=== PATIENT | male | born 1940 | race Caucasian/White ===

== ENCOUNTER → 2019-05-11 10:22 | Day surgery (SDC) | payer MEDICARE, BC ==
[~2019-05-11 10:22] MED LIST: Acetaminophen TAB* 325 MG PO PRN; Benzocaine/Butamben/Tetracain (CETACAINE - SINGLE USE) 5 gm TOPICAL ONE; Buffered Lidocaine 1% SYRIN* 1 ML/SYRINGE INTRADERM ONE; Dexamethasone IV* 4 MG/ML 1 ML (4 MG) IV SLOW PU ONE; Dexamethasone IV* 4 MG/ML 1 ML (4 MG) ONE; DiMENhydriNATE IV* 50 MG/ML VIAL IV PUSH PRN; Lactated Ringers 1000 ML Bag* 1,000 ML IV SCH; Levalbuterol 0.63MG/3ML NEB* UNIT OF USE INH ONE; Levalbuterol 0.63MG/3ML NEB* UNIT OF USE INH PRN; Lidocaine 2% PF * 5 ML VIAL ONE; Midazolam* 1 MG/ML 2 ML VIAL (2 MG) ONE; Naloxone* 0.4 MG/ML 1 ML VIAL IV PRN; Ondansetron INJ* 2 MG/ML VIAL ONE; Propofol* 10 MG/ML 20 ML BTL ONE; Succinylcholine* 20 MG/ML 10 ML VIAL ONE; diPHENhydraMINE IV* 50 MG/ML 1 ml VIAL (BENADRYL) IV PRN; fentaNYL* 50 MCG/ML 2 ML VIAL (100 MCG VIAL) IV PRN; fentaNYL* 50 MCG/ML 2 ML VIAL (100 MCG VIAL) ONE
[2019-05-11 12:19] LABS: BUN/Creatinine Ratio 24.6 (8-20); Calcium 9.7 mg/dL (8.6-10.3); EGFR African American 58.5 (>60); EGFR Non-African American 48.3 (>60); Potassium 4.5 mmol/L (3.5-5.0)
--- NOTE | 2019-05-11 16:17 | BRIEFOPN ---
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
[2019-05-11 17:20] VITALS: BP 143/101
--- NOTE | 2019-05-11 17:29 | PRO ---
BRONCHOSCOPY REPORT: DATE OF PROCEDURE: 05/11/19 [facility] PROCEDURE PERFORMED: Bronchoscopy and EBUS with FNA of R4, station 7, L4, L10 lymph nodes. PREPROCEDURAL DIAGNOSIS: Recently diagnosed squamous cell lung cancer. ANESTHESIA: General anesthesia. ANESTHESIOLOGIST: Dr. Grimes. DESCRIPTION OF PROCEDURE: Informed consent was obtained from the patient prior to the procedure after all the risks and benefits were thoroughly explained. The patient was intubated with size 8.5 endotracheal tube. Appropriate time- out was performed and agreed on by attending staff prior to the procedure. A flexible Olympus bronchoscope was inserted through ET tube for airway inspection. ET tube positioning confirmed to be 3 cm above the level of josy. Bronchoscope was then advanced into right bronchial tree, which was inspected. No endobronchial lesions were noted. Thick secretions were noted and were suctioned out. Bronchoscope was then advanced into the left bronchial tree, which was inspected. No endobronchial lesions noted. Thick secretions noted and were suctioned out. All bronchi appeared to be patent. Bronchoscope was then withdrawn and EBUS bronchoscope was inserted. Station R4 was mildly enlarged and was sampled with two passes. Rapid on-site evaluation revealed lymphatic tissue. Station 7 was then accessed also with two passes. Rapid on- site evaluation revealed lymphatic tissue with no malignant cells. Station L4 was accessed also with three passes. Rapid on-site evaluation revealed lymphatic tissue with no malignant cells. L10 was accessed with two passes. Rapid on-site evaluation revealed lymphatic tissue with no malignant cells. Bronchoscope was then withdrawn and Olympus bronchoscope was reinserted for inspection of any bleeding. Small amount of blood was noted and was suctioned out. The patient tolerated the procedure well. The patient was extubated and seen in Recovery in optimal condition. Specimen was sent to the lab in formalin for further testing. [id number]/[facility] #: [id number] [facility]
== END | disposition home or self-care (01) ==
LOC: OR 10:22
PROVIDERS: ATTEND Internal Medicine
DX: C34.90 Malignant neoplasm of unspecified part of unspecified bronchus or lung (principal); R91.8 Other nonspecific abnormal finding of lung field; K21.9 Gastro-esophageal reflux disease without esophagitis; E11.9 Type 2 diabetes mellitus without complications; Z79.82 Long term (current) use of aspirin; Z79.899 Other long term (current) drug therapy; Z87.891 Personal history of nicotine dependence
CPT/HCPCS: 36415; 80048; 88172; 88173; 88177; 88305; 93005; J0330; J1100; J2250; J2405; J2704; J3010

== ENCOUNTER 2020-04-20 15:15 | Inpatient (IN) ==
[2020-04-20] MEDS ORDERED: NS 0.9% 1000 ml BAG 1,000 ML IV ONE (16:00)
[2020-04-20 16:24] LABS: ABS Basophils 0.1 10^3/ul (0-0.2); ABS Eosinophils 0.2 10^3/ul (0-0.6); ABS Lymphocytes 1.2 10^3/ul (1.0-4.8); ABS Monocytes 0.7 10^3/ul (0-0.8); ABS Neutrophils 4.4 10^3/ul (1.5-7.7); Eosinophil % 2.6 %; Hematocrit 33 % (42-52); Hemoglobin 11.3 g/dL (14.0-18.0); Lymphocyte % 18.2 %; Mean Corpuscular HGB Conc 35 g/dL (31-36); Mean Corpuscular Hemoglobin 34 pg (27-31); Mean Corpuscular Volume 99 fL (80-94); Mean Platelet Volume 8.7 fL (7.4-10.4); Platelet Count 197 10^3/uL (150-450); Red Blood Count 3.29 10^6 /uL (4.18-5.48); Red Cell Distribution Width 14 % (10-15); White Blood Count 6.5 10^3/uL (3.5-10.8)
[2020-04-20 16:33] LABS: Activated Partial Thrombo Time 33.6 seconds (26.0-38.0); INR 0.97 (0.82-1.09)
[2020-04-20 16:45] LABS: Troponin I 0.04 ng/mL (<0.03)
[2020-04-20 17:00] LABS: CO2 Carbon Dioxide 26 mmol/L (22-32); Chloride 104 mmol/L (101-111); Potassium 4.4 mmol/L (3.5-5.0); Sodium 139 mmol/L (135-145)
[2020-04-20 17:01] LABS: ALT 21 U/L (7-52); AST 22 U/L (13-39); Albumin 4.4 g/dL (3.2-5.2); Albumin/Globulin Ratio 2.2 (1-3); Alkaline Phosphatase 59 U/L (34-104); Anion Gap 9 mmol/L (2-11); BUN/Creatinine Ratio 23.3 (8-20); Blood Urea Nitrogen 42 mg/dL (6-24); Calcium 9.7 mg/dL (8.6-10.3); EGFR African American 44.4 (>60); EGFR Non-African American 36.7 (>60); Glucose 159 mg/dL (70-100); Total Protein 6.4 g/dL (6.4-8.9)
[2020-04-20] MEDS ORDERED: Iodixanol (CONTRAST) 320 MG/ML 100 ML SDV IV ONE (17:03)
[2020-04-20] MEDS ORDERED: Dextrose 50% Syringe 50 ml 25 GM/50 ML SYRINGE IV PUSH PRN (19:44)
[2020-04-20 20:12] LABS: Cholesterol 120 mg/dL; HDL Cholesterol 30.4 mg/dL; LDL Cholesterol 24 mg/dL; Triglycerides 329 mg/dL
[2020-04-20 22:29] LABS: Troponin I 0.03 ng/mL (<0.03)
[2020-04-20] MEDS: Insulin GLARGINE 100 un/ml 10 ml VIAL SUBCUT SCH (22:50)
[2020-04-21 01:41] LABS: Troponin I 0.03 ng/mL (<0.03)
[2020-04-21] MEDS: Aspirin EC 81 mg TAB.EC (enteric coated) PO SCH (09:42)
[2020-04-21] MEDS ORDERED: NS 0.9% 1000 ml BAG 1,000 ML IV ONE (13:18)
[2020-04-21] MEDS: Latanoprost 0.005% 2.5 ml BTL BOTH EYES SCH (17:09)
[2020-04-21] MEDS: Insulin GLARGINE 100 un/ml 10 ml VIAL SUBCUT SCH (21:29)
[2020-04-22] MEDS: Aspirin EC 81 mg TAB.EC (enteric coated) PO SCH (09:01)
[2020-04-22] MEDS ORDERED: Perflutren Lipid Microsphere 3 ML VIAL ONE (09:52)
[2020-04-22] MEDS ORDERED: Calcium Polycarbophil 625mg TB PO PRN (16:05)
[2020-04-22] MEDS: Latanoprost 0.005% 2.5 ml BTL BOTH EYES SCH (16:55)
[2020-04-22] MEDS: Insulin GLARGINE 100 un/ml 10 ml VIAL SUBCUT SCH (20:14)
[2020-04-23 06:35] LABS: BUN/Creatinine Ratio 21.7 (8-20); EGFR African American 50.5 (>60); EGFR Non-African American 41.7 (>60); Potassium 4.4 mmol/L (3.5-5.0)
[2020-04-23 08:10] VITALS: BP 123/43
== END 2020-04-23 11:53 | disposition home or self-care (01) | DRG 66 ==
LOC: MEDTELE 15:15 → ED 15:15 → MEDTELE 22:42
PROVIDERS: ADMIT Internal Medicine; ATTEND Internal Medicine

== ENCOUNTER 2021-01-10 14:43 | Inpatient (IN) ==
[2021-01-10] MEDS ORDERED: NS 0.9% 500 ml BAG 500 ML IV ONE (16:04)
[2021-01-10 16:57] LABS: ABS Lymphocytes 0.4 10^3/ul (1.0-4.8); ABS Neutrophils 4.6 10^3/ul (1.5-7.7); Eosinophil % 0.7 %; Hematocrit 27 % (42-52); Hemoglobin 9.3 g/dL (14.0-18.0); Lymphocyte % 7.3 %; Mean Corpuscular HGB Conc 34 g/dL (31-36); Mean Corpuscular Hemoglobin 34 pg (27-31); Mean Corpuscular Volume 99 fL (80-94); Mean Platelet Volume 8.8 fL (7.4-10.4); Platelet Count 154 10^3/uL (150-450); Red Blood Count 2.76 10^6 /uL (4.18-5.48); Red Cell Distribution Width 15 % (10-15); White Blood Count 5.1 10^3/uL (3.5-10.8)
[2021-01-10 17:07] LABS: Activated Partial Thrombo Time 29.6 seconds (26.0-38.0); INR 1.05 (0.86-1.15)
[2021-01-10 17:13] LABS: ALT 26 U/L (7-52); AST 23 U/L (13-39); Albumin 3.7 g/dL (3.2-5.2); Albumin/Globulin Ratio 1.9 (1-3); Alkaline Phosphatase 53 U/L (35-149); Anion Gap 7 mmol/L (2-11); Blood Urea Nitrogen 52 mg/dL (6-24); C Reactive Protein 4.52 mg/L (<8.01); CO2 Carbon Dioxide 27 mmol/L (22-32); Calcium 8.9 mg/dL (8.6-10.3); Chloride 103 mmol/L (101-111); EGFR African American 40.1 (>60); EGFR Non-African American 33.2 (>60); Globulin 1.9 g/dL (2-4); Glucose 143 mg/dL (70-100); Potassium 4.5 mmol/L (3.5-5.0); Sodium 137 mmol/L (135-145); Total Protein 5.6 g/dL (6.4-8.9)
[2021-01-10 17:15] LABS: Troponin I 0.41 ng/mL (<0.03)
[2021-01-10 18:09] LABS: Urine Appearance Cloudy; Urine Bilirubin Negative (Negative); Urine Blood Negative (Negative); Urine Color Yellow; Urine Glucose Negative (Negative); Urine Ketones Negative (Negative); Urine Nitrite Negative (Negative); Urine Protein Negative (Negative); Urine Specific Gravity 1.015 (1.002-1.030); Urine Urobilinogen Negative (Negative)
[2021-01-10 18:31] LABS: Urine Bacteria Absent (Absent); Urine Red Blood Cell Trace(0-2/hpf) (Absent); Urine Squamous Epithelial Cell Present (Absent); Urine White Blood Cell 2+(11-20/hpf) (Absent)
[2021-01-10] MEDS ORDERED: cefTRIAXone 1 gm/50 mL NS BAG 1 GM/50 ML BAG IV ONE (18:34)
[2021-01-10] MEDS ORDERED: Ondansetron 4 mg VIAL 2 MG/ML 2 ml VIAL IV PRN (21:07)
[2021-01-10] MEDS ORDERED: Dextrose 50% Syringe 50 ml 25 GM/50 ML SYRINGE IV PUSH PRN (21:07)
[2021-01-10 21:14] LABS: Troponin I 0.34 ng/mL (<0.03)
[2021-01-10] MEDS ORDERED: NS 0.9% 1000 ml BAG 1,000 ML IV SCH (21:15)
[2021-01-11 01:06] LABS: Troponin I 0.32 ng/mL (<0.03)
[2021-01-11 06:31] LABS: ABS Eosinophils 0.1 10^3/ul (0-0.6); ABS Lymphocytes 0.5 10^3/ul (1.0-4.8); ABS Monocytes 0.1 10^3/ul (0-0.8); ABS Neutrophils 3.6 10^3/ul (1.5-7.7); Eosinophil % 1.8 %; Hematocrit 27 % (42-52); Hemoglobin 9.2 g/dL (14.0-18.0); Lymphocyte % 10.9 %; Mean Corpuscular HGB Conc 34 g/dL (31-36); Mean Corpuscular Hemoglobin 33 pg (27-31); Mean Corpuscular Volume 100 fL (80-94); Mean Platelet Volume 8.8 fL (7.4-10.4); Platelet Count 152 10^3/uL (150-450); Red Blood Count 2.75 10^6 /uL (4.18-5.48); Red Cell Distribution Width 14 % (10-15); White Blood Count 4.2 10^3/uL (3.5-10.8)
[2021-01-11 06:40] LABS: INR 1.05 (0.86-1.15)
[2021-01-11 06:55] LABS: Calcium 8.9 mg/dL (8.6-10.3); EGFR African American 48.3 (>60); EGFR Non-African American 39.9 (>60); HDL Cholesterol 30.1 mg/dL; Potassium 4.1 mmol/L (3.5-5.0)
[2021-01-11] MEDS ORDERED: Sulfamethox/Trimethoprim DS TAB 800/160 mg PO SCH (09:00)
[2021-01-11] MEDS: Insulin ISOPH/REG 70/30 SUBCUT SCH (09:26)
[2021-01-11] MEDS ORDERED: Perflutren Lipid Microsphere 3 ML VIAL ONE (09:49)
[2021-01-11] MEDS ORDERED: Latanoprost 0.005% 2.5 ml BTL BOTH EYES SCH (18:00)
[2021-01-11] MEDS ORDERED: Insulin ISOPH/REG 70/30 SUBCUT SCH (18:00)
[2021-01-11] MEDS ORDERED: Mometasone 220 MCG MDI INH SCH (18:00)
[2021-01-11] MEDS: Vitamin THERAPEUTIC TAB PO SCH (19:09)
[2021-01-11] MEDS ORDERED: CMCS: Simvastatin 10 mg TAB (NF) PO SCH (21:00)
[2021-01-12 06:30] LABS: Hematocrit 26 % (42-52); Hemoglobin 8.6 g/dL (14.0-18.0); Mean Corpuscular HGB Conc 33 g/dL (31-36); Mean Corpuscular Hemoglobin 33 pg (27-31); Mean Corpuscular Volume 100 fL (80-94); Mean Platelet Volume 8.8 fL (7.4-10.4); Platelet Count 146 10^3/uL (150-450); Red Cell Distribution Width 15 % (10-15); White Blood Count 2.9 10^3/uL (3.5-10.8)
[2021-01-12 06:41] LABS: Calcium 9.2 mg/dL (8.6-10.3); EGFR African American 61.7 (>60); Potassium 4.4 mmol/L (3.5-5.0)
[2021-01-12] MEDS: Vitamin THERAPEUTIC TAB PO SCH (10:08)
[2021-01-12] MEDS: Insulin ISOPH/REG 70/30 SUBCUT SCH (10:12)
[2021-01-12 11:42] VITALS: BP 121/56
== END 2021-01-12 16:15 | disposition home or self-care (01) | DRG 641 ==
LOC: ED 14:43 → MEDTELE 22:14
PROVIDERS: ADMIT Internal Medicine; ATTEND Hospitalist

== ENCOUNTER 2021-05-12 20:03 | Observation (INO) ==
[2021-05-12 21:05] LABS: ABS Eosinophils 0.2 10^3/ul (0-0.6); ABS Lymphocytes 0.3 10^3/ul (1.0-4.8); ABS Monocytes 0.5 10^3/ul (0-0.8); Eosinophil % 4.2 %; Hematocrit 26 % (42-52); Hemoglobin 8.7 g/dL (14.0-18.0); Lymphocyte % 7.6 %; Mean Corpuscular HGB Conc 34 g/dL (31-36); Mean Corpuscular Hemoglobin 36 pg (27-31); Mean Corpuscular Volume 107 fL (80-94); Mean Platelet Volume 8.5 fL (7.4-10.4); Platelet Count 166 10^3/uL (150-450); Red Blood Count 2.39 10^6 /uL (4.18-5.48); Red Cell Distribution Width 18 % (10-15); White Blood Count 4.1 10^3/uL (3.5-10.8)
[2021-05-12 21:15] LABS: Urine Appearance Cloudy; Urine Bilirubin Negative (Negative); Urine Blood Negative (Negative); Urine Color Yellow; Urine Glucose Negative (Negative); Urine Ketones Negative (Negative); Urine Nitrite Negative (Negative); Urine Protein Negative (Negative); Urine Urobilinogen Negative (Negative)
[2021-05-12 21:20] LABS: Urine Bacteria Absent (Absent); Urine Red Blood Cell Trace(0-2/hpf) (Absent); Urine Squamous Epithelial Cell Present (Absent); Urine White Blood Cell 2+(11-20/hpf) (Absent)
[2021-05-12 21:32] LABS: ALT 15 U/L (7-52); AST 18 U/L (13-39); Albumin 4.2 g/dL (3.2-5.2); Albumin/Globulin Ratio 1.9 (1-3); Alkaline Phosphatase 62 U/L (35-149); Anion Gap 8 mmol/L (2-11); Blood Urea Nitrogen 26 mg/dL (6-24); C Reactive Protein 15.39 mg/L (<8.01); CO2 Carbon Dioxide 26 mmol/L (22-32); Calcium 9.1 mg/dL (8.6-10.3); Chloride 104 mmol/L (101-111); Globulin 2.2 g/dL (2-4); Glucose 212 mg/dL (70-100); Lipase 32 U/L (11.0-82.0); Potassium 4.4 mmol/L (3.5-5.0); Sodium 138 mmol/L (135-145); Total Protein 6.4 g/dL (6.4-8.9)
[2021-05-13] MEDS ORDERED: Iodixanol (CONTRAST) 320 MG/ML 100 ML SDV IV ONE (01:37)
[2021-05-13 04:48] LABS: Rapid COVID-19 Molecular Undetected (Undetected)
[2021-05-13 05:50] LABS: Magnesium 1.8 mg/dL (1.9-2.7)
[2021-05-13] MEDS ORDERED: Magnesium Sulfate IV 1GM/100ML 1 GM/100 ML BAG IV ONE (06:03)
[2021-05-13 06:13] LABS: Troponin I 0.03 ng/mL (<0.03)
[2021-05-13 07:32] LABS: ABS Eosinophils 0.1 10^3/ul (0-0.6); ABS Lymphocytes 0.2 10^3/ul (1.0-4.8); ABS Monocytes 0.6 10^3/ul (0-0.8); ABS Neutrophils 3.5 10^3/ul (1.5-7.7); Eosinophil % 3.2 %; Hematocrit 25 % (42-52); Hemoglobin 8.3 g/dL (14.0-18.0); Lymphocyte % 5.2 %; Mean Corpuscular HGB Conc 33 g/dL (31-36); Mean Corpuscular Hemoglobin 36 pg (27-31); Mean Corpuscular Volume 109 fL (80-94); Mean Platelet Volume 8.2 fL (7.4-10.4); Nucleated Red Blood Cells % 0.1; Platelet Count 163 10^3/uL (150-450); Red Cell Distribution Width 17 % (10-15); White Blood Count 4.4 10^3/uL (3.5-10.8)
[2021-05-13 07:47] LABS: Anion Gap 7 mmol/L (2-11); Blood Urea Nitrogen 26 mg/dL (6-24); CO2 Carbon Dioxide 25 mmol/L (22-32); Calcium 9.3 mg/dL (8.6-10.3); Chloride 104 mmol/L (101-111); Glucose 206 mg/dL (70-100); Potassium 4.3 mmol/L (3.5-5.0); Sodium 136 mmol/L (135-145)
[2021-05-13 08:08] LABS: Troponin I 0.03 ng/mL (<0.03)
[2021-05-13] MEDS ORDERED: Dextran 70/Hypromellose Tears Eye Drops 15 ml BTL (for Artificials Tears) BOTH EYES PRN (08:16)
[2021-05-13] MEDS: Insulin ISOPH/REG 70/30 SUBCUT SCH ×2 (08:28→17:20)
[2021-05-13] MEDS: Vitamin THERAPEUTIC TAB PO SCH (08:29)
[2021-05-13] MEDS: OMEGA-3 FATTY ACID 1000 mg(NF) PO SCH ×3 (08:30→20:56)
[2021-05-13] MEDS ORDERED: OMEGA ACID ETHYL ESTERS PO SCH (09:00)
[2021-05-13] MEDS ORDERED: Mometasone 220 MCG MDI INH SCH (19:00)
[2021-05-13] MEDS ORDERED: Latanoprost 0.005% 2.5 ml BTL BOTH EYES SCH (21:00)
[2021-05-14 09:22] LABS: % Iron Saturation 13 % (15-55); Iron 37 ug/dL (50-212); Total Iron Binding Capacity 276 mcg/dL (250-450); Transferrin 197 mg/dL (203-362); Unsaturated Iron Binding < 261 ug/dL
[2021-05-14 09:42] LABS: Ferritin 177.6 ng/mL (24-336)
[2021-05-14] MEDS: Vitamin THERAPEUTIC TAB PO SCH (10:01)
[2021-05-14] MEDS: Insulin ISOPH/REG 70/30 SUBCUT SCH (10:04)
[2021-05-14] MEDS ORDERED: Iron Sucrose 200 MG in NS 0.9% 100 ml BAG 100 ML IVPB SCH (14:00)
[2021-05-14 15:32] VITALS: BP 140/67
[2021-05-14] MEDS ORDERED: OMEGA-3 FATTY ACID 1000 mg(NF) PO SCH (21:00)
== END 2021-05-14 16:30 | disposition home or self-care (01) ==
LOC: ED 20:03 → EDHOLD 20:03 → MEDTELE 05-13 10:34
PROVIDERS: ADMIT Hospitalist; ATTEND Hospitalist

== ENCOUNTER 2024-07-16 13:53 | Observation (INO) ==
[2024-07-16 15:37] LABS: ABS Basophils 0.1 10^3/uL (0.0-0.1); ABS Lymphocytes 0.9 10^3/uL (1.0-4.8); ABS Monocytes 0.6 10^3/uL (0.0-1.1); ABS Neutrophils 6.4 10^3/uL (1.5-7.6); Eosinophil % 0.2 %; Hematocrit 37.9 % (38-53); Hemoglobin 12.7 g/dL (13.2-16.3); Lymphocyte % 11.2 %; Mean Corpuscular Hemoglobin 34.1 pg (27-33); Mean Corpuscular Hgb Conc 33.7 g/dL (31-36); Mean Corpuscular Volume 101.4 fL (80-97); Mean Platelet Volume 9.2 fL (7.5-11.2); Platelet Count 195 10^3/uL (150-450); Red Blood Count 3.73 10^6/uL (4.06-5.63); Red Cell Distribution Width 14.3 % (12-17)
[2024-07-16 15:45] LABS: INR 1.1 (0.85-1.14)
[2024-07-16 16:20] LABS: Albumin 4.3 g/dL (3.5-5.7); Albumin/Globulin Ratio 2.4 (1-3); Creatinine, Serum 2.13 mg/dL (0.67-1.17); Globulin 1.8 g/dL (2-4); Potassium 4.1 mmol/L (3.5-5.0); Total Bilirubin 0.5 mg/dL (0.2-1.0); Total Protein 6.1 g/dL (6.4-8.9); eGFR CKD-EPI 30.1 (>60)
[2024-07-16 16:55] LABS: Urine Appearance Clear; Urine Bacteria Absent /HPF (Absent); Urine Bilirubin Negative (Negative); Urine Blood 1+ (Negative); Urine Color Light-Yellow; Urine Glucose 4+ (>=1000 mg/dL) (Negative); Urine Ketones 1+ (Negative); Urine Nitrite Negative (Negative); Urine Protein Trace (Negative); Urine Red Blood Cell Trace(0-2/hpf) /HPF (0-Trace); Urine Squamous Epithelial Cell Present /HPF (Absent); Urine Urobilinogen Negative (Negative); Urine White Blood Cell Trace(0-5/hpf) /HPF (0-Trace); Urine pH 5.5 (5.0-8.0)
[2024-07-16 17:17] LABS: High Sensitivity Troponin 1 Hr 50 pg/mL (<20)
[2024-07-16] MEDS ORDERED: Iodixanol 320 (CONTRAST) 100 ML SDV IV ONE (17:46)
[2024-07-17] MEDS ORDERED: Sulfur Hexaflouride MICROSPHR 25 MG VIAL IV PRN (00:18)
[2024-07-17] MEDS: Enoxaparin 100 MG/ML SYR SUBCUT SCH (00:39)
[2024-07-17] MEDS: Lactated Ringers 1000 ml BAG 1,000 ML IV SCH (03:18)
[2024-07-17 04:58] LABS: Hematocrit 36.9 % (38-53); Hemoglobin 12.3 g/dL (13.2-16.3); Mean Corpuscular Hemoglobin 34.1 pg (27-33); Mean Corpuscular Hgb Conc 33.4 g/dL (31-36); Mean Corpuscular Volume 101.9 fL (80-97); Mean Platelet Volume 8.9 fL (7.5-11.2); Platelet Count 185 10^3/uL (150-450); Red Blood Count 3.62 10^6/uL (4.06-5.63); Red Cell Distribution Width 14.8 % (12-17); White Blood Count 7.5 10^3/uL (3.6-10.2)
[2024-07-17] MEDS ORDERED: Ondansetron 4 mg VIAL 2 MG/ML 2 ml VIAL IV PRN (05:06)
[2024-07-17 05:22] LABS: Calcium 9.3 mg/dL (8.6-10.3); Creatinine, Serum 1.83 mg/dL (0.67-1.17); HDL Cholesterol 32.6 mg/dL; Magnesium 1.9 mg/dL (1.9-2.7); Potassium 4.2 mmol/L (3.5-5.0); eGFR CKD-EPI 36.2 (>60)
[2024-07-17] MEDS: Insulin ISOPH/REG 70/30 SUBCUT SCH (09:19)
[2024-07-17 11:10] LABS: ABS Basophils 0.1 10^3/uL (0.0-0.1); ABS Lymphocytes 0.9 10^3/uL (1.0-4.8); ABS Monocytes 0.5 10^3/uL (0.0-1.1); ABS Neutrophils 5.9 10^3/uL (1.5-7.6); ABS Nucleated RBC 0.01 10^3/ul; Eosinophil % 0.1 %; Nucleated Red Blood Cells % 0.1 %/100WBC (0.0-0.8)
[2024-07-17 14:27] VITALS: BP 133/61
[2024-07-17] MEDS ORDERED: Insulin ISOPH/REG 70/30 SUBCUT SCH (21:00)
[2024-07-17] MEDS ORDERED: Latanoprost 0.005% 2.5 ml BTL BOTH EYES SCH (21:00)
== END 2024-07-17 17:38 | disposition home or self-care (01) ==
LOC: ED 13:53 → EDHOLD 13:53 → SUATTDRO 19:02 → MEDTELE 07-17 10:46
PROVIDERS: ADMIT Internal Medicine; ATTEND Internal Medicine

== ENCOUNTER 2024-07-20 19:03 | Observation (INO) ==
[2024-07-20 19:39] LABS: ABS Eosinophils 0.1 10^3/uL (0.0-0.5); ABS Lymphocytes 0.8 10^3/uL (1.0-4.8); ABS Monocytes 0.6 10^3/uL (0.0-1.1); ABS Neutrophils 5.6 10^3/uL (1.5-7.6); ABS Nucleated RBC 0.01 10^3/ul; Eosinophil % 1.1 %; Hematocrit 35.1 % (38-53); Hemoglobin 11.9 g/dL (13.2-16.3); Lymphocyte % 11.1 %; Mean Corpuscular Hemoglobin 34.6 pg (27-33); Mean Corpuscular Hgb Conc 33.8 g/dL (31-36); Mean Corpuscular Volume 102.4 fL (80-97); Mean Platelet Volume 9.3 fL (7.5-11.2); Nucleated Red Blood Cells % 0.1 %/100WBC (0.0-0.8); Platelet Count 158 10^3/uL (150-450); Red Blood Count 3.43 10^6/uL (4.06-5.63); Red Cell Distribution Width 14.2 % (12-17); White Blood Count 7.2 10^3/uL (3.6-10.2)
[2024-07-20 19:51] LABS: INR 1.13 (0.85-1.14)
[2024-07-20 20:09] LABS: Albumin 3.8 g/dL (3.5-5.7); Albumin/Globulin Ratio 2.1 (1-3); Calcium 9.1 mg/dL (8.6-10.3); Creatinine, Serum 2.7 mg/dL (0.67-1.17); Globulin 1.8 g/dL (2-4); Potassium 4.6 mmol/L (3.5-5.0); Total Bilirubin 0.5 mg/dL (0.2-1.0); Total Protein 5.6 g/dL (6.4-8.9); eGFR CKD-EPI 22.7 (>60)
[2024-07-20 21:18] LABS: High Sensitivity Troponin 1 Hr 53 pg/mL (<20)
[2024-07-20] MEDS: Lactated Ringers 1000 ml BAG 500 ML IV ONE (22:23)
[2024-07-20 23:44] LABS: INR 1.08 (0.85-1.14)
[2024-07-20 23:45] LABS: C Reactive Protein 141.21 mg/L (<8.01)
[2024-07-21 02:03] LABS: Urine Appearance Turbid; Urine Bacteria Absent /HPF (Absent); Urine Bilirubin Negative (Negative); Urine Blood 2+ (Negative); Urine Color Yellow; Urine Glucose 4+ (>=1000 mg/dL) (Negative); Urine Ketones Trace (Negative); Urine Nitrite Negative (Negative); Urine Protein 1+ (>=30 mg/dL) (Negative); Urine Red Blood Cell 1+(3-5/hpf) /HPF (0-Trace); Urine Squamous Epithelial Cell Present /HPF (Absent); Urine Urobilinogen Negative (Negative); Urine White Blood Cell Absent /HPF (0-Trace)
[2024-07-21 04:14] LABS: HDL Cholesterol 27.1 mg/dL
[2024-07-21] MEDS: Enoxaparin 100 MG/ML SYR SUBCUT SCH (06:47)
[2024-07-21] MEDS: Insulin ISOPH/REG 70/30 SUBCUT SCH ×2 (10:23→20:32)
[2024-07-21] MEDS: Lactated Ringers 1000 ml BAG 1,000 ML IV ONE (11:25)
[2024-07-21] MEDS: DAPAGLIFLOZIN 10 MG TAB (NF) PO SCH (17:04)
[2024-07-21 17:08] LABS: Calcium 9.1 mg/dL (8.6-10.3); Creatinine, Serum 2.64 mg/dL (0.67-1.17); Potassium 4.9 mmol/L (3.5-5.0); eGFR CKD-EPI 23.3 (>60)
[2024-07-21] MEDS: Amoxicillin/Clavul 875/125 TAB (Augmentin 875 tab) PO SCH (20:30)
[2024-07-22] MEDS: Enoxaparin 80 MG/0.8 ML SYR SUBCUT SCH (06:14)
[2024-07-22 06:43] LABS: Hemoglobin 11.2 g/dL (13.2-16.3); Mean Corpuscular Hemoglobin 35.4 pg (27-33); Mean Corpuscular Volume 101.3 fL (80-97); Mean Platelet Volume 9.3 fL (7.5-11.2); Platelet Count 145 10^3/uL (150-450); Red Blood Count 3.16 10^6/uL (4.06-5.63); Red Cell Distribution Width 14.5 % (12-17); White Blood Count 4.8 10^3/uL (3.6-10.2)
[2024-07-22 06:56] LABS: Creatinine, Serum 2.34 mg/dL (0.67-1.17); Magnesium 1.9 mg/dL (1.9-2.7); Potassium 4.5 mmol/L (3.5-5.0); eGFR CKD-EPI 26.9 (>60)
[2024-07-22] MEDS ORDERED: DAPAGLIFLOZIN 5 MG TAB (NF) PO SCH (09:00)
[2024-07-22] MEDS: Lactated Ringers 1000 ml BAG 1,000 ML IV ONE (12:58)
[2024-07-22] MEDS: Amoxicillin/Clavul 500/125 TAB (Augmentin 500 mg tab) PO SCH (20:52)
[2024-07-23 05:57] LABS: Hematocrit 32.1 % (38-53); Hemoglobin 11.2 g/dL (13.2-16.3); Mean Corpuscular Hemoglobin 35.3 pg (27-33); Mean Corpuscular Hgb Conc 34.8 g/dL (31-36); Mean Corpuscular Volume 101.4 fL (80-97); Mean Platelet Volume 9.1 fL (7.5-11.2); Platelet Count 169 10^3/uL (150-450); Red Blood Count 3.16 10^6/uL (4.06-5.63); Red Cell Distribution Width 14.3 % (12-17); White Blood Count 4.4 10^3/uL (3.6-10.2)
[2024-07-23 06:22] LABS: Calcium 8.9 mg/dL (8.6-10.3); Creatinine, Serum 2.03 mg/dL (0.67-1.17); Magnesium 1.9 mg/dL (1.9-2.7); Potassium 4.3 mmol/L (3.5-5.0); eGFR CKD-EPI 31.9 (>60)
[2024-07-23] MEDS: Magnesium Sulfate IV 1GM/100ML 1 GM/100 ML BAG IV ONE (08:36)
[2024-07-23] MEDS: Lactated Ringers 1000 ml BAG 1,000 ML IV SCH (08:36)
[2024-07-23 13:14] VITALS: BP 119/55
== END 2024-07-23 15:00 | disposition home or self-care (01) ==
LOC: ED 19:03 → EDHOLD 19:03 → SUATTDRO 07-21 03:01 → EDHOLD 07-21 09:53 → MEDTELE 07-21 13:09
PROVIDERS: ADMIT Internal Medicine; ATTEND Internal Medicine

== ENCOUNTER 2024-07-26 00:05 | Inpatient (IN) ==
[2024-07-26 00:33] LABS: ABS Eosinophils 0.1 10^3/uL (0.0-0.5); ABS Lymphocytes 0.9 10^3/uL (1.0-4.8); ABS Monocytes 0.7 10^3/uL (0.0-1.1); ABS Neutrophils 8.5 10^3/uL (1.5-7.6); Eosinophil % 1.2 %; Hematocrit 34.6 % (38-53); Hemoglobin 11.7 g/dL (13.2-16.3); Lymphocyte % 8.5 %; Mean Corpuscular Hemoglobin 34.1 pg (27-33); Mean Corpuscular Hgb Conc 33.8 g/dL (31-36); Mean Platelet Volume 8.9 fL (7.5-11.2); Platelet Count 211 10^3/uL (150-450); Red Blood Count 3.42 10^6/uL (4.06-5.63); Red Cell Distribution Width 14.3 % (12-17); White Blood Count 10.2 10^3/uL (3.6-10.2)
[2024-07-26 00:38] LABS: INR 1.14 (0.85-1.14)
[2024-07-26 01:17] LABS: Albumin 4.1 g/dL (3.5-5.7); Albumin/Globulin Ratio 2.2 (1-3); Calcium 9.2 mg/dL (8.6-10.3); Creatinine, Serum 2.81 mg/dL (0.67-1.17); Globulin 1.9 g/dL (2-4); Potassium 4.8 mmol/L (3.5-5.0); Total Bilirubin 0.4 mg/dL (0.2-1.0); eGFR CKD-EPI 21.6 (>60)
[2024-07-26 02:46] LABS: High Sensitivity Troponin 1 Hr 29 pg/mL (<20)
[2024-07-26] MEDS: Lactated Ringers 1000 ml BAG 1,000 ML IV ONE ×2 (02:46→15:27)
[2024-07-26 08:26] LABS: High Sensitivity Troponin 3 Hr 35 pg/mL (<20)
[2024-07-26 12:34] LABS: Anion Gap 9 mmol/L (2-16); Blood Urea Nitrogen 22 mg/dL (6-24); CO2 Carbon Dioxide 25 mmol/L (22-32); Calcium 8.3 mg/dL (8.6-10.3); Chloride 98 mmol/L (101-111); Glucose 211 mg/dL (70-100); Potassium 4.6 mmol/L (3.5-5.0); Sodium 132 mmol/L (135-145); eGFR CKD-EPI 23.7 (>60)
[2024-07-26 12:59] LABS: Urine Appearance Clear; Urine Bacteria Absent /HPF (Absent); Urine Bilirubin Negative (Negative); Urine Blood 2+ (Negative); Urine Color Light-Yellow; Urine Glucose 4+ (>=1000 mg/dL) (Negative); Urine Ketones Negative (Negative); Urine Nitrite Negative (Negative); Urine Protein Trace (Negative); Urine Red Blood Cell Trace(0-2/hpf) /HPF (0-Trace); Urine Squamous Epithelial Cell Present /HPF (Absent); Urine Urobilinogen Negative (Negative); Urine White Blood Cell Trace(0-5/hpf) /HPF (0-Trace); Urine pH 5.5 (5.0-8.0)
[2024-07-26] MEDS ORDERED: Dextrose 50% Syringe 50 ml 25 GM/50 ML SYRINGE IV PUSH PRN (16:23)
[2024-07-26] MEDS: Enoxaparin 100 MG/ML SYR SUBCUT SCH (16:48)
[2024-07-26 18:11] LABS: % Iron Saturation 8 % (15-55); .Transferrin 186 mg/dL (203-362); Iron 21 ug/dL (50-212); Magnesium 1.8 mg/dL (1.9-2.7); Total Iron Binding Capacity 260 mcg/dL (250-450); Unsaturated Iron Binding 239 ug/dL
[2024-07-26 18:18] LABS: Osmolality Serum 291 mOsm/kg (275-295)
[2024-07-26 18:22] LABS: TSH Ultra Thyroid Stim Horm 0.25 mcIU/mL (0.34-5.60)
[2024-07-26 18:29] LABS: Ferritin 101.1 ng/mL (24-336)
[2024-07-26 18:33] LABS: Folate > 20.00 ng/mL (5.90-24.80)
[2024-07-26 18:34] LABS: Vitamin B12 > 1450 pg/mL (180-914)
[2024-07-26 20:02] LABS: High Sensitivity Troponin 1 Hr 45 pg/mL (<20)
[2024-07-26] MEDS: Insulin GLARGINE 100 un/ml 10 ml VIAL SUBCUT SCH (21:25)
[2024-07-26] MEDS: Latanoprost 0.005% 2.5 ml BTL BOTH EYES SCH (21:27)
[2024-07-26] MEDS: Lidocaine PATCH 5% PATCH TRANSDERM SCH (21:27)
[2024-07-26] MEDS: Magnesium Sulfate IV 1GM/100ML 1 GM/100 ML BAG IV ONE (21:28)
[2024-07-26 21:51] LABS: C Reactive Protein 214.35 mg/L (<8.01)
[2024-07-26 22:09] LABS: Total T3 48 ng/dL (87-178)
[2024-07-26 22:29] LABS: High Sensitivity Troponin 3 Hr 44 pg/mL (<20)
[2024-07-27 05:30] LABS: ABS Basophils 0.1 10^3/uL (0.0-0.1); ABS Eosinophils 0.1 10^3/uL (0.0-0.5); ABS Lymphocytes 0.9 10^3/uL (1.0-4.8); ABS Monocytes 0.6 10^3/uL (0.0-1.1); ABS Neutrophils 7.5 10^3/uL (1.5-7.6); Eosinophil % 0.6 %; Hematocrit 30.7 % (38-53); Hemoglobin 10.5 g/dL (13.2-16.3); Lymphocyte % 9.7 %; Mean Corpuscular Hemoglobin 35.2 pg (27-33); Mean Corpuscular Hgb Conc 34.3 g/dL (31-36); Mean Corpuscular Volume 102.4 fL (80-97); Mean Platelet Volume 9.3 fL (7.5-11.2); Platelet Count 182 10^3/uL (150-450); Red Cell Distribution Width 14.4 % (12-17); White Blood Count 9.2 10^3/uL (3.6-10.2)
[2024-07-27 06:08] LABS: Calcium 8.3 mg/dL (8.6-10.3); Creatinine, Serum 2.5 mg/dL (0.67-1.17); Potassium 4.3 mmol/L (3.5-5.0); eGFR CKD-EPI 24.9 (>60)
[2024-07-27] MEDS: Sulfur Hexaflouride MICROSPHR 25 MG VIAL IV PRN (10:40)
[2024-07-27 13:31] LABS: Urine Osmo 227 mOsm/kg (150-1150)
[2024-07-28 06:03] LABS: ABS Basophils 0.1 10^3/uL (0.0-0.1); ABS Eosinophils 0.1 10^3/uL (0.0-0.5); ABS Monocytes 0.6 10^3/uL (0.0-1.1); ABS Neutrophils 6.1 10^3/uL (1.5-7.6); Eosinophil % 1.7 %; Hematocrit 29.1 % (38-53); Hemoglobin 9.8 g/dL (13.2-16.3); Lymphocyte % 12.4 %; Mean Corpuscular Hemoglobin 34.3 pg (27-33); Mean Corpuscular Hgb Conc 33.7 g/dL (31-36); Mean Corpuscular Volume 101.7 fL (80-97); Mean Platelet Volume 9.3 fL (7.5-11.2); Platelet Count 192 10^3/uL (150-450); Red Blood Count 2.86 10^6/uL (4.06-5.63); Red Cell Distribution Width 14.3 % (12-17); White Blood Count 7.8 10^3/uL (3.6-10.2)
[2024-07-28 06:41] LABS: Calcium 8.5 mg/dL (8.6-10.3); Creatinine, Serum 2.12 mg/dL (0.67-1.17); Magnesium 2.1 mg/dL (1.9-2.7); Potassium 4.5 mmol/L (3.5-5.0); eGFR CKD-EPI 30.3 (>60)
[2024-07-28 09:33] VITALS: BP 108/65
[2024-07-28] MEDS: Ferric Gluconate IV 250 MG in NS 0.9% 250 ml 200 ML IVPB SCH (09:55)
[2024-07-28] MEDS ORDERED: CLONAZEPAM 0.5 MG PO PRN (19:56)
[2024-07-28] MEDS ORDERED: Insulin GLARGINE 100 un/ml 10 ml VIAL SUBCUT SCH (21:00)
[2024-07-28] MEDS: Insulin GLARGINE 100 un/ml 10 ml VIAL SUBCUT SCH (23:32)
[2024-07-29] MEDS: Benzocaine/Menthol LOZ PO PRN (01:12)
[2024-07-29] MEDS ORDERED: Dextrose 50% Syringe 50 ml 25 GM/50 ML SYRINGE IV PUSH PRN (07:42)
[2024-07-29] MEDS: Insulin GLARGINE 100 un/ml 10 ml VIAL SUBCUT ONE (08:50)
[2024-07-30] MEDS: Insulin GLARGINE 100 un/ml 10 ml VIAL SUBCUT SCH (22:00)
[2024-07-30] MEDS: Senna TAB 8.6 mg TAB PO PRN (22:01)
[2024-07-31] MEDS: Polyethylene Glycol 3350 17 GM PACKET PO PRN (08:42)
[2024-07-31] MEDS: Nystatin SUSPENSION 100,000 UNITS/ML UDC PO SCH (12:35)
[2024-07-31] MEDS: Magic MouthWash1-BEN/MAAL/LIDO 180 ML BTL SWISH SWAL SCH (14:29)
[2024-08-02] MEDS ORDERED: Insulin GLARGINE 100 un/ml 10 ml VIAL SUBCUT SCH (21:00)
[2024-08-02] MEDS: Insulin GLARGINE 100 un/ml 10 ml VIAL SUBCUT SCH (22:03)
== END 2024-08-03 11:35 | disposition hospice, home (50) | DRG 682 ==
LOC: EDHOLD 00:05 → ED 00:05 → SUATTDRO 15:52 → MED 16:57 → SUATTDRO 07-28 16:00
PROVIDERS: ADMIT Hospitalist; ATTEND Internal Medicine